=== PATIENT | male | born 1965 | race African-American/Black ===

== ENCOUNTER 2016-09-19 12:15 | Emergency (ER) | payer OTHER ==
[~2016-09-19] VITALS: Ht 193 cm; Wt 141.7 kg
[2016-09-19] MEDS ORDERED: VENTOLIN HFA18 GM IH (14:00)
[2016-09-19] MEDS ORDERED: ZESTORETIC 20-1 EAC1 PO (14:00)
[2016-09-19] MEDS ORDERED: INDOCIN50 MG PO (14:04)
[2016-09-19] MEDS ORDERED: NORCO 5/3251 TABLET PO (14:04)
[2016-09-19] MEDS ORDERED: FLEXERIL5 MG PO (14:04)
[2016-09-19 14:26] VITALS: BP 155/79
== END 2016-09-19 14:28 | disposition home or self-care (01) ==
LOC: EME 12:15
DX: S29.012A Strain of muscle and tendon of back wall of thorax, initial encounter (principal); S80.01XA Contusion of right knee, initial encounter; V49.40XA Driver injured in collision with unspecified motor vehicles in traffic accident, initial encounter
CPT/HCPCS: 73564; 99281; 99282